=== PATIENT | male | born 1965 | race Caucasian/White ===

== ENCOUNTER 2019-01-15 18:31 | Emergency (ER) | payer BC ==
[2019-01-15] MEDS ORDERED: traMADol HCl 50 MG TAB ONE (18:50)
[2019-01-15] MEDS ORDERED: Dicyclomine 20 MG TAB ONE (18:51)
[2019-01-15] MEDS ORDERED: Ketorolac Tromethamine 30 MG/ML VIAL ONE (18:51)
--- NOTE | 2019-01-15 19:40 | CT ---
CT ABDOMEN AND PELVIS WITHOUT CONTRAST: 01/15/2019 TECHNIQUE: A spiral CT of the abdomen and pelvis was performed for evaluation of left flank pain. FINDINGS: The lung bases are clear. The liver, spleen, pancreas, gallbladder, adrenal glands, and abdominal ao rta show no acute findings. Mild left hydronephrosis is present, due to a 6 to 7 mm calculus in the distal left ureter, near the UVJ. No calcifications are seen in either kidney. The density of fluid in the bladder seems slightl y increased. There could be blood within the bladder. I would suggest making sure his urine is grant r after the stone has passed. The bowel shows no distention, wall thickening, or inflammatory changes around it. No free air or fr ee fluid is seen. CT pelvis is remarkable for the findings listed above. There is no free fluid or pelvic inflammatory change. IMPRESSION: 1. A 6 to 7 mm distal left ureteral calculus near the ureterovesicular junction, causing mild left h ydronephrosis. 2. Slightly increased density of fluid in the urinary bladder. Recommend checking a urinalysis afte r the stone has completely cleared and things have settled, to be sure there is no hematuria. Discussed with Dr. Figueroa at 1910 hours on 01/15/2019. CODE CR POS: HOME
== END 2019-01-15 19:34 | disposition home or self-care (01) ==
LOC: BURERS 18:31
DX: N13.2 Hydronephrosis with renal and ureteral calculous obstruction (principal)
CPT/HCPCS: 74176; 96372; J1885